=== PATIENT | male | born 1960 | race Caucasian/White ===

== ENCOUNTER 2024-06-24 18:42 | Emergency (ER) | payer BC ==
[~2024-06-24] VITALS: Ht 182.9 cm; Wt 90.7 kg
[2024-06-24 18:50] VITALS: BP 120/71; PULSE 83; RESP 16; O2SAT 97
[2024-06-24 20:22] VITALS: TEMP 98.2
== END 2024-06-24 20:29 | disposition home or self-care (01) ==
LOC: ER 18:42
DX: S90.01XA Contusion of right ankle, initial encounter (principal); W18.39XA Other fall on same level, initial encounter; Y93.89 Activity, other specified; Y92.89 Other specified places as the place of occurrence of the external cause; Y99.8 Other external cause status
CPT/HCPCS: 73610; 99283